=== PATIENT | female | born 1965 | race Caucasian/White ===

== ENCOUNTER 2021-06-20 14:30 | Outpatient (CLI) | payer BC | END 2021-06-20 14:31 | disposition home or self-care (01) | LOC: BICMAMMO 14:30 | PROVIDERS: ATTEND Internal Medicine Rheumatology | DX: M81.0 Age-related osteoporosis without current pathological fracture (principal); M05.79 Rheumatoid arthritis with rheumatoid factor of multiple sites without organ or systems involvement; M85.89 Other specified disorders of bone density and structure, multiple sites | CPT/HCPCS: 71046; 77080 ==

== ENCOUNTER 2024-04-14 10:12 | Outpatient (CLI) | payer OTHER | END 2024-04-14 10:13 | disposition home or self-care (01) | LOC: BICMAMMO 10:12 | PROVIDERS: ATTEND Internal Medicine Rheumatology | DX: M81.0 Age-related osteoporosis without current pathological fracture (principal); M85.851 Other specified disorders of bone density and structure, right thigh; M85.852 Other specified disorders of bone density and structure, left thigh | CPT/HCPCS: 77080 ==